=== PATIENT | female | born 1965 ===

== ENCOUNTER 2018-01-10 08:09 | Outpatient (CLI) | payer OTHER | END 2018-01-10 08:34 | disposition home or self-care (01) | LOC: LAB 08:09 | DX: I10 Essential (primary) hypertension (principal); E11.9 Type 2 diabetes mellitus without complications; N20.1 Calculus of ureter; R82.79 Other abnormal findings on microbiological examination of urine ==

== ENCOUNTER → 2018-01-21 14:30 | Outpatient (CLI) | payer OTHER | END | disposition home or self-care (01) | LOC: LAB 14:30 | DX: N30.00 Acute cystitis without hematuria (principal); R82.79 Other abnormal findings on microbiological examination of urine ==

== ENCOUNTER → 2018-01-28 15:18 | Outpatient (CLI) | payer OTHER | END | disposition home or self-care (01) | LOC: LAB 15:18 | DX: N39.0 Urinary tract infection, site not specified (principal) ==

== ENCOUNTER 2018-02-26 05:25 | Day surgery (SDC) | payer OTHER ==
[~2018-02-26 05:25] MED LIST: JUNUMET PO; LIPITOR20 MG PO; LOSARTAN-HCTZ1 EAC1 PO; NASONEX17 GM; PROVENTIL HFA6.7 GM IH; SINGULAIR10 MG PO; SPIRIVA RESPIMAT4 G1 IH; SYNTH PO; VERAPAMIL ER180 MG PO
== END 2018-02-26 15:30 | disposition home or self-care (01) ==
LOC: CIR.AMB 05:25
DX: N20.1 Calculus of ureter (principal); N28.89 Other specified disorders of kidney and ureter

== ENCOUNTER 2018-04-17 10:54 | Outpatient (CLI) | payer OTHER | END 2018-04-17 10:56 | disposition home or self-care (01) | LOC: SONOGRAMA 10:54 | DX: N20.1 Calculus of ureter (principal) ==

== ENCOUNTER 2018-05-05 12:00 | Outpatient (CLI) | payer OTHER | END 2018-05-05 17:00 | disposition home or self-care (01) | LOC: RX STUDY 12:00 | DX: N28.89 Other specified disorders of kidney and ureter (principal) | CPT/HCPCS: 51600; 74455; Q9958 ==